=== PATIENT | male | born 1985 | race Hispanic/Latino ===

== ENCOUNTER 2020-10-22 15:32 | Emergency (ER) | payer BC ==
[~2020-10-22] VITALS: Ht 180.3 cm; Wt 138.3 kg
[2020-10-22] MEDS ORDERED: ACETAMINOPHEN 325 MG TAB ONE (15:56)
[2020-10-22] MEDS ORDERED: ZITHROMAX250 MG PO (16:53)
[2020-10-22] MEDS ORDERED: DECADRON6 MG PEG (16:55)
[2020-10-22] MEDS ORDERED: PROVENTIL HFA6.7 GM INH (16:57)
[2020-10-22] MEDS ORDERED: IBUPROFEN400 MG PO (16:59)
[2020-10-22] MEDS ORDERED: IBUPROFEN 400 MG TAB PO ONE (17:00)
[2020-10-22] MEDS ORDERED: ACETAMINOPHEN 325 MG TAB PO ONE (17:15)
== END 2020-10-22 17:27 | disposition home or self-care (01) ==
LOC: FSED 15:43
DX: U07.1 COVID-19 (principal); J18.9 Pneumonia, unspecified organism; R50.9 Fever, unspecified; J98.01 Acute bronchospasm; E66.9 Obesity, unspecified
CPT/HCPCS: 71046; 99283

== ENCOUNTER 2020-10-26 04:54 | Inpatient (IN) | payer BC ==
[~2020-10-26] VITALS: Ht 180.3 cm; Wt 139.9 kg
[~2020-10-26 04:54] MED LIST: DECADRON6 MG PEG; IBUPROFEN400 MG PO; PROVENTIL HFA6.7 GM INH; ZITHROMAX250 MG PO
[2020-10-26] MEDS ORDERED: SODIUM CHLORIDE 0.9% 1000ML 1,000 ML IV STA (05:22)
[2020-10-26] MEDS ORDERED: CEFTRIAXONE SOD 1 GM/NS 50 ML 50 ML IV ONE ×2 (05:30→05:49)
[2020-10-26] MEDS ORDERED: SODIUM CHLORIDE 0.9% 1000ML 1,000 ML ONE (05:49)
[2020-10-26] MEDS ORDERED: IOPAMIDOL 370 MG/ML 200 ML INFUS..BTL INJ ONE (05:56)
[2020-10-26] MEDS ORDERED: SODIUM CHLORIDE 0.9% 50ML 50 ML ONE (05:56)
[2020-10-26] MEDS: SODIUM CHLORIDE 0.9% 1000ML 1,000 ML IV SCH ×4 (06:15→11:59)
[2020-10-26] MEDS ORDERED: SODIUM CHLORIDE 0.9% 1000ML 2,000 ML ONE (06:18)
[2020-10-26] MEDS ORDERED: SODIUM CHLORIDE 0.9% 1000ML 1,000 ML IV SCH (08:15)
[2020-10-26] MEDS ORDERED: DEXAMETHASONE SOD PHOS 10 MG/1 ML VIAL IV ONE (08:30)
[2020-10-26] MEDS ORDERED: KETOROLAC TROMETHAMINE 30 MG/ML VIAL IV STA (11:27)
[2020-10-26] MEDS ORDERED: ACETAMINOPHEN 325 MG TAB PO ONE (11:30)
[2020-10-26] MEDS ORDERED: ENOXAPARIN INJ 80 MG/0.8 ML SYR SC STA (12:21)
[2020-10-26] MEDS ORDERED: ALBUTEROL/IPRATROPIUM 3 ML NEB NEB ONE (12:30)
[2020-10-26] MEDS ORDERED: ALBUTEROL/IPRATROPIUM 3 ML NEB NEB SCH (15:00)
[2020-10-26] MEDS ORDERED: AZITHROMYCIN 500MG/NS 250 ML 250 ML IV SCH (16:00)
[2020-10-26 16:05] LABS: HEMATOCRIT 46.9 % (38.2-49.6); HEMOGLOBIN 16.6 g/dL (14.0-18.0); MEAN CORPUSCULAR HGB CONC 35.4 g/dL (31-35); MEAN CORPUSCULAR VOLUME 84.7 fL (81-99); PLATELET COUNT 198 x10e3/uL (140-360); RED BLOOD COUNT 5.54 x10e6/uL (4.3-5.7); RED CELL DISTRIBUTION WIDTH 12.1 % (11.7-14.4)
[2020-10-26 16:06] VITALS: BP 146/96
[2020-10-26 16:29] LABS: ANION GAP 14.3 mmol/L (8-16); BLOOD UREA NITROGEN 11 mg/dL (7-26); BUN/CREATININE RATIO 15 (6-25); CALCIUM 8.7 mg/dL (8.4-10.2); CARBON DIOXIDE 24 mmol/L (22-29); CHLORIDE 101 mmol/L (98-107); CREATININE, SERUM 0.74 mg/dL (0.72-1.25); EST GLOMERULAR FILTRATION RATE > 60 ML/MIN (60-); GLUCOSE 108 mg/dL (74-118); POTASSIUM 3.3 mmol/L (3.5-5.1); SODIUM 136 mmol/L (136-145)
[2020-10-26] MEDS ORDERED: ASCORBIC ACID 500 MG TAB PO SCH (17:00)
[2020-10-26] MEDS ORDERED: ENOXAPARIN INJ 80 MG/0.8 ML SYR SC SCH (17:00)
[2020-10-26] MEDS ORDERED: REMDESIVIR 200MG/NS 100ML 200 MG IV ONE (18:00)
[2020-10-26] MEDS ORDERED: ENOXAPARIN SOD INJ 40 MG/0.4 ML SYR SC SCH (21:00)
[2020-10-27] MEDS ORDERED: CEFTRIAXONE SOD 1 GM in SODIUM CHLORIDE 0.9% 50ML 50 ML IV SCH (05:00)
[2020-10-27] MEDS ORDERED: ALBUTEROL SULFATE HFA 8GM INHALATION AEROSOL INH SCH (07:00)
[2020-10-27] MEDS ORDERED: LORAZEPAM INJ 2 MG/ML VIAL ONE (08:44)
[2020-10-27] MEDS ORDERED: CEFTRIAXONE SOD 2 GM/NS 100 ML 100 ML IV SCH (09:00)
[2020-10-27] MEDS ORDERED: ZINC SULFATE 220 MG CAP PO SCH (09:00)
[2020-10-27] MEDS ORDERED: DEXAMETHASONE SOD PHOS 10 MG/1 ML VIAL IV SCH ×2 (09:00)
[2020-10-27] MEDS ORDERED: REMDESIVIR 100MG/NS 100ML 100 MG IV SCH (14:00)
== END 2020-10-26 21:30 | disposition short-term general hospital (02) | DRG 177 ==
LOC: FSED 05:20 → ERHOLD 08:14
PROVIDERS: ADMIT Internal Medicine; ATTEND Internal Medicine
PROC: 02HV33Z Insertion of Infusion Device into Superior Vena Cava, Percutaneous Approach (ICD-10-PCS; principal; 2020-10-26)
PROC: B548ZZA Ultrasonography of Superior Vena Cava, Guidance (ICD-10-PCS; 2020-10-26)
PROC: 3E0433Z Introduction of Anti-inflammatory into Central Vein, Percutaneous Approach (ICD-10-PCS; 2020-10-26)
PROC: XW043E5 Introduction of Remdesivir Anti-infective into Central Vein, Percutaneous Approach, New Technology Group 5 (ICD-10-PCS; 2020-10-26)
DX: U07.1 COVID-19 (principal); J12.82 Pneumonia due to coronavirus disease 2019; J96.01 Acute respiratory failure with hypoxia; Z68.41 Body mass index [BMI] 40.0-44.9, adult; E66.9 Obesity, unspecified
CPT/HCPCS: 36415; 36569; 71045; 71260; 80048; 80076; 85007; 85025; 85027; 87040; 99284; J0456; J0696; J2060; J7030; Q9967